=== PATIENT | female | born 1990 | race Caucasian/White ===

== ENCOUNTER 2022-04-16 18:01 | Emergency (ER) | payer OTHER, SELFPAY ==
[2022-04-16 18:08] VITALS: BP 146/81; PULSE 86; RESP 20; TEMP 36.7; O2SAT 99; BMI 32.5
--- NOTE | 2022-04-16 18:12 | DI.RAD.S_ITS ---
PROCEDURE: XR ANKLE LT MIN 3V INDICATIONS: injury TECHNIQUE: 3 views of the ankle were acquired. COMPARISON: None. FINDINGS: Bones: No acute fractures or dislocations. Ankle mortise is normally aligned. No suspicious bony lesions. Soft tissues: Mild nonspecific soft tissue edema is seen over the lateral malleolus. IMPRESSION: No acute osseous abnormality. If clinical suspicion and/or symptoms persist, additional imaging with repeat plain films, or advanced imaging (e.g. CT, MRI) may be helpful for further assessment. Approved by: Brandon Ruiz M.D. on 04/16/2022 at 18:49
--- NOTE | 2022-04-16 18:12 | DI.RAD.S_ITS ---
PROCEDURE: XR ANKLE RT MIN 3V INDICATIONS: injury TECHNIQUE: Three views of the ankle were acquired. COMPARISON: None. FINDINGS: Bones: Minimally displaced oblique fracture of the distal fibula . Questionable posterior malleolar fracture of the distal tibia. Osseous protuberance at the dorsal aspect of navicular is most likely secondary to a remote prior injury. Ankle mortise is normally aligned. No suspicious bony lesions. Soft tissues: Moderate soft tissue edema surrounding the ankle is more prominent over the lateral malleolus. IMPRESSION: 1. Minimally displaced oblique fracture of the distal fibula. 2. Questionable nondisplaced posterior malleolar fracture. Approved by: Brandon Ruiz M.D. on 04/16/2022 at 18:51
--- NOTE | 2022-04-16 18:55 | ED_ITS ---
HPI - Extremity Injury (Lower) <Booker LouisDAHIANA - Last Filed: 04/16/22 19:55> General Chief Complaint: Extremity Injury, Lower Stated Complaint: fell down 5 steps, rt ank poss brok, lt ank inj Time Seen by Provider: 04/16/22 18:53 Source: family Mode of arrival: Ambulatory History of Present Illness HPI Narrative: 32-year-old female, never smoker, presents to the emergency department with bilateral ankle pain after falling down 6 stairs earlier today. Patient denies hitting her head or any loss of consciousness. Increased pain with weight- bearing, worse on right. Related Data Allergies Allergy/AdvReac Type Severity Reaction Status Date / Time No Known Drug Allergies Allergy Verified 04/16/22 18:12 Review of Systems <Booker Louis RELIEF MASTER - Last Filed: 04/16/22 19:55> Review of Systems Narrative: Narrative: See HPI. GENERAL: Denies chills, fatigue, fever, sweats. HEENT: Denies sinus pain, ear pain, sore throat, difficulty swallowing, dizziness. RESPIRATORY: Denies dyspnea, cough, wheezing, sputum. CARDIOVASCULAR: Denies chest pain, palpitations, edema. GASTROINTESTINAL: Denies nausea, vomiting, abdominal pain, diarrhea, constipation. : Denies dysuria, frequency, incontinence, hematuria, urinary retention, flank pain. MSK: Denies weakness. Endorses bilateral ankle pain and swelling. SKIN: Denies rash, skin lesions, or pruritis. NEUROLOGIC: Denies weakness, dizziness, headache, numbness, confusion. PSYCHIATRIC: No concerning psychosocial issues. Patient History <Booker AntoineDAHIANA hayes - Last Filed: 04/16/22 19:55> alcohol intake frequency: 0-2 drinks per day Substance Use Type: marijuana Exam <Booker AntoineDAHIANA hayes - Last Filed: 04/16/22 19:55> Narrative Exam Narrative: Exam Narrative: GENERAL: This is a well-nourished, well-developed patient, in no acute distress. HEAD: Atraumatic. Normocephalic. EYES: Pupils equal round and reactive. No scleral icterus, injection or drainage. ENT: Nose without bleeding, purulent drainage. Airway patent. NECK: Trachea midline. No JVD. RESPIRATORY: Normal respiratory rate and effort. MSK: Moves all extremities. Normal range of motion, no clubbing or edema. Neurovascularly intact. NEURO: A&O x 3. SKIN: Warm, dry, no rashes or lesions noted. ANKLE: There is swelling, but no bruising or asymmetry. There is no tenderness to general palpation. Sensation grossly intact. There is tenderness over bilateral lateral malleolus. There is no tenderness to bilateral Proximal tibia/fibula, medial malleolus, midfoot, arch or metatarsals. The anterior mortise is non-tender. Flexion and extension is intact. Unable to test for stability or laxity due to pain. The contralateral ankle exam is unremarkable. Initial Vital Signs Initial Vital Signs: Vital Signs Temperature 98.1 F 04/16/22 18:08 Pulse Rate 86 04/16/22 18:08 Respiratory Rate 20 04/16/22 18:08 Blood Pressure 146/81 H 04/16/22 18:08 Pulse Oximetry 99 04/16/22 18:08 Oxygen Delivery Method Room Air 04/16/22 18:08 Reviewed <Booker Carrillo DO - Last Filed: 04/17/22 00:20> Initial Vital Signs Initial Vital Signs: Vital Signs Temperature 98.1 F 04/16/22 18:08 Pulse Rate 86 04/16/22 18:08 Respiratory Rate 20 04/16/22 18:08 Blood Pressure 146/81 H 04/16/22 18:08 Pulse Oximetry 99 04/16/22 18:08 Oxygen Delivery Method Room Air 04/16/22 18:08 Course <DAHIANA Mueller - Last Filed: 04/16/22 19:55> Orders Ordered: ED Orders 04/16/22 18:12 XR ankle LT min 3V Stat XR ankle RT min 3V Stat Discontinued Medications Oxycodone/Acetaminophen (Oxycodone/Acetaminophen 5/325 Tablet) 1 tab PO NOW ONE Stop: 04/16/22 19:04 Last Admin: 04/16/22 19:11 Dose: 1 tab Documented By: ANTHONY Oxycodone/Acetaminophen (Oxycodone/Apap 5/325 Prepack) 1 bottle MISC SEEINSTR ONE Stop: 04/16/22 19:11 Last Admin: 04/16/22 19:14 Dose: 1 bottle Documented By: ANTHONY Vital Signs Vital signs: Vital Signs - 8 hr 04/16/22 18:08 04/16/22 19:34 Temperature 98.1 F Pulse Rate 86 84 Respiratory Rate 20 Blood Pressure 146/81 H 135/78 Pulse Oximetry 99 97 Oxygen Delivery Method Room Air Room Air <Booker Carrillo DO - Last Filed: 04/17/22 00:20> Orders Ordered: ED Orders 04/16/22 18:12 XR ankle LT min 3V Stat XR ankle RT min 3V Stat Discontinued Medications Oxycodone/Acetaminophen (Oxycodone/Acetaminophen 5/325 Tablet) 1 tab PO NOW ONE Stop: 04/16/22 19:04 Last Admin: 04/16/22 19:11 Dose: 1 tab Documented By: ANTHONY Oxycodone/Acetaminophen (Oxycodone/Apap 5/325 Prepack) 1 bottle MISC SEEINSTR ONE Stop: 04/16/22 19:11 Last Admin: 04/16/22 19:14 Dose: 1 bottle Documented By: ANTHONY Vital Signs Vital signs: Vital Signs - 8 hr 04/16/22 18:08 04/16/22 19:34 Temperature 98.1 F Pulse Rate 86 84 Respiratory Rate 20 Blood Pressure 146/81 H 135/78 Pulse Oximetry 99 97 Oxygen Delivery Method Room Air Room Air MDM - Extremity Injury (Lower) <DAHIANA Mueller - Last Filed: 04/16/22 19:55> Differential Diagnosis Differential diagnosis: Likely ankle sprain and strain and ankle fracture Imaging Data Extremity x-ray #1: Radiologist's Impression: [place] [address] XRay Report Signed Patient: Samson Sandoval MR#: [id number] : 1990 Acct:[id number] Age/Sex: 32 / F Date of Service: 04/16/22 Loc: ED Accession Number: [id number] ?? Procedure: XR ankle RT min 3V Ordering Provider: Estephanie Pleitez D.O. PROCEDURE:? XR ANKLE RT MIN 3V ? INDICATIONS:? injury ? TECHNIQUE:? Three views of the ankle were acquired.? ? COMPARISON:? None. ? FINDINGS:? ? Bones:? Minimally displaced oblique fracture of the distal fibula .? Questionable posterior malleolar fracture of the distal tibia.? Osseous protuberance at the dorsal aspect of navicular is most likely secondary to a remote prior injury.? Ankle mortise is normally aligned.? No suspicious bony lesions.? ? Soft tissues:? Moderate soft tissue edema surrounding the ankle is more prominent over the lateral malleolus. ? ? IMPRESSION:? 1. Minimally displaced oblique fracture of the distal fibula. 2. Questionable nondisplaced posterior malleolar fracture. ? Approved by: Brandon Ruiz M.D. on 04/16/2022 at 18:51? Extremity x-ray #2: Radiologist's Impression: [address] [address] XRay Report Signed Patient: Samson Sandoval MR#: [id number] : 1990 Acct:[id number] Age/Sex: 32 / F Date of Service: 04/16/22 Loc: ED Accession Number: [id number] ?? Procedure: XR ankle LT min 3V Ordering Provider: Estephanie Pleitez D.O. PROCEDURE:? XR ANKLE LT MIN 3V ? INDICATIONS:? injury ? TECHNIQUE:? 3 views of the ankle were acquired.? ? COMPARISON:? None. ? FINDINGS:? ? Bones:? No acute fractures or dislocations.? Ankle mortise is normally aligned.? No suspicious bony lesions.? ? Soft tissues:? Mild nonspecific soft tissue edema is seen over the lateral malleolus. ? IMPRESSION:? No acute osseous abnormality.? If clinical suspicion and/or symptoms persist, additional imaging with repeat plain films, or advanced imaging (e.g. CT, MRI) may be helpful for further assessment. ? Approved by: Brandon Ruiz M.D. on 04/16/2022 at 18:49? MDM Narrative Medical decision making narrative: 32-year-old female presents to the emergency department with bilateral ankle pain. X-rays reveals a minimally displaced oblique fracture of the right distal fibula and questionable nondisplaced posterior malleolar fracture. Patient was placed in a boot and crutches with instructions for nonweightbearing, Rest (modified activity), along with ice, compression wrap/splint-immobilize as directed and elevation above heart. Tylenol or Ibuprofen for discomfort. Will provide short course of pain medication for breakthrough pain. Orthopedic referral placed. Instructed patient and to contact orthopedic office tomorrow morning. Patient and verbalized understanding and were agreeable with course of action. Discharge Plan Departure Patient Disposition: Home Clinical Impression: Ankle sprain and strain, Ankle fracture Instructions: DI for Ankle Sprain, DI for Fracture Activity Restrictions/Additional Instructions: *You have been diagnosed with a left ankle sprain/strain and a right ankle/fibula fracture. You have been placed in a right-sided walking boot and crutches. Please keep all weight off of the right leg. As much as you can, especially over the next 48 hours, please get off your feet, elevate both ankles above your heart and apply ice (with some type of cloth or fabric in between the skin and the ice). Please start taking ibuprofen 600 mg 3 times a day with food for the next 5 days. You may also take Tylenol 500 mg 3 times a day with the ibuprofen. We will send you home with a short course of pain medications for breakthrough pain. I have placed a referral for Orthopedics. Please contact [facility] orthopedic clinic tomorrow for further guidance. *What to do: *Please continue to take your regular medications as directed. [ x] New medication prescriptions sent to your pharmacy: [[facility]] [ ] New medication written as a paper prescription [ ] No new medications given *Please follow up with your primary care provider in 2-3 days, call for an appointment. Let them know you were seen in the Emergency Department and that we ask that you be seen in follow up. We will electronically transmit a record of today's note if your PCP is in our system *If you do not have a primary care provider please contact the [facility] Resource line at [phone]. They will ask some questions about your medical history and help get you set up with a doctor in the community. ? Return to ER if you should have any new, worsening or concerning symptoms, such as worsening pain, severe headache, confusion, chest pain, difficulty breathing, fever greater than 101 F, shaking chills, persistent vomiting to the point that you cannot drink fluids, or other new or worsening symptoms. Referrals: Harmeet Machado MD [Physician] - (Please evaluate and treat right fibula fracture) Stand Alone Forms: Patient Portal/API <Booker Carrillo DO - Last Filed: 04/17/22 00:20> [facility] Dr Carrillo Co-Sign Statement: I was available for consultation during this patient's emergency department visit. This chart is signed by myself for administrative purposes only. I did not have direct contact with this patient during this visit. They were seen independently by the APC.
[2022-04-16] MEDS: OXYCODONE/ACETAMINOPHEN 5/325 TABLET 1 TAB PO (19:11)
[2022-04-16] MEDS: OXYCODONE/APAP 5/325 PREPACK 1 BOTTLE MISC (19:14)
[2022-04-16 19:34] VITALS: BP 135/78; PULSE 84; O2SAT 97
== END 2022-04-16 19:35 | disposition home or self-care (01) ==
PROVIDERS: Emergency Provider Registered Nurse
DX: S82.61XA Displaced fracture of lateral malleolus of right fibula, initial encounter for closed fracture (principal); S93.402A Sprain of unspecified ligament of left ankle, initial encounter; W10.9XXA Fall (on) (from) unspecified stairs and steps, initial encounter
CPT/HCPCS: 73610; 99283